=== PATIENT | female | born 1990 | race African-American/Black ===

== ENCOUNTER 2019-08-24 10:09 | Emergency (ER) | payer BC, OTHER ==
[~2019-08-24] VITALS: Ht 154.9 cm; Wt 76.2 kg
[~2019-08-24 10:09] MED LIST: PERCOCET 5-3251 EACH PO; SILVADENE20 GM TP
[2019-08-24 10:32] LABS: URINE BILIRUBIN NEGATIVE (Negative); URINE BLOOD 3+ (Negative); URINE CLARITY SL CLOUDY; URINE COLOR YELLOW; URINE GLUCOSE-RANDOM* NEGATIVE (Negative); URINE KETONES NEGATIVE (Negative); URINE LEUKOCYTES NEGATIVE (Negative); URINE NITRITE NEGATIVE (Negative); URINE PROTEIN (DIPSTICK) NEGATIVE (Negative); URINE UROBILINOGEN 0.2 E.U./dl (0.2-1.0)
[2019-08-24 10:42] LABS: BACTERIA 1-9 Few /HPF (None Seen); CASTS None Seen /LPF (None Seen); CRYSTALS None Seen /LPF (None Seen); SQUAMOUS 4-10 Moderate /LPF (0-3); URINE RBC >20 Many /HPF (0-2); URINE WBC 0-5 Rare /HPF (0-5)
[2019-08-24] MEDS ORDERED: DULERA 200 MCG/13 GM INH (10:54)
[2019-08-24] MEDS ORDERED: ZYRTEC10 M5 PO (10:54)
[2019-08-24] MEDS ORDERED: PULMICORT0.5 MG/22 INH (10:54)
[2019-08-24] MEDS ORDERED: SINGULAIR 10 MG10 M1 PO (10:54)
[2019-08-24 11:07] LABS: HEMATOCRIT 42.3 % (37.0-47.0); HEMOGLOBIN 14.1 gm/dL (12.0-15.0); MCH 25.9 pg (26.0-34.0); MCHC 33.3 g/dL (28.0-37.0); MCV 77.5 fL (80.0-100.0); RBC 5.46 mil/uL (4.20-5.00); RDW 15.1 % (10.5-14.5); WBC 7.3 thou/uL (4.0-11.0)
[2019-08-24 11:24] LABS: CALCIUM 10.2 mg/dL (8.5-10.1); CREATININE 0.9 mg/dL (0.6-1.0)
[2019-08-24 11:26] LABS: POTASSIUM 4.8 mmol/L (3.5-5.1)
[2019-08-24 13:03] VITALS: BP 112/74
== END 2019-08-24 13:04 | disposition home or self-care (01) ==
LOC: ER 10:09
PROVIDERS: Emergency Medicine; Physician Assistant
DX: N93.8 Other specified abnormal uterine and vaginal bleeding (principal); Z88.8 Allergy status to other drugs, medicaments and biological substances; Z91.040 Latex allergy status